=== PATIENT | female | born 1990 ===

== ENCOUNTER 2018-01-12 08:42 | Emergency (ER) | payer OTHER ==
[2018-01-12 08:51] VITALS: TEMP 98.4; O2SAT 100
--- NOTE | 2018-01-12 09:09 | C.PDOC ---
History Of Present Illness 27 year old female, [employer] employee, with no significant past medical history, presents to ED for evaluation of left calf pain, and swelling that developed yesterday while at work. Pt states that her left calf was measured to be 1/2 inch bigger than the right calf. Denies any injury, change in sensation, extremity weakness, numbness, chest pain, shortness of breath, fever, chills, or any other associated symptoms at this time. Time Seen by Provider: 01/12/18 08:44 Chief Complaint (Nursing): Lower Extremity Problem/Injury History Per: Patient History/Exam Limitations: no limitations Onset/Duration Of Symptoms: Days Current Symptoms Are (Timing): Still Present Recent travel outside of the [place]: No Additional History Per: Patient Past Medical History Reviewed: Historical Data, Nursing Documentation, Vital Signs Vital Signs: Last Vital Signs Temp 98.4 F 01/12/18 08:47 Pulse 72 01/12/18 10:20 Resp 16 01/12/18 10:20 BP 116/72 01/12/18 10:20 Pulse Ox 100 01/12/18 10:20 - [facility] APPLICATION OF SPLINT (12/05/03) Family History: States: Unknown Family Hx - Social History Hx Alcohol Use: No Hx Substance Use: No - Immunization History Hx Tetanus Toxoid Vaccination: Yes Hx Influenza Vaccination: Yes Hx Pneumococcal Vaccination: Yes Review Of Systems Except As Marked, All Systems Reviewed And Found Negative. Constitutional: Negative for: Fever, Chills Cardiovascular: Negative for: Chest Pain, Palpitations Respiratory: Negative for: Cough, Shortness of Breath Musculoskeletal: Positive for: Leg Pain (left calf) Neurological: Negative for: Weakness, Numbness, Headache Physical Exam - Physical Exam Appears: Non-toxic, No Acute Distress Skin: Normal Color, Warm, Dry Head: Atraumatic, Normacephalic Eye(s): bilateral: Normal Inspection Oral Mucosa: Moist Extremity: Normal ROM, No Pedal Edema, Calf Tenderness (left ), Capillary Refill (less than 2 seconds), No Deformity, No Other (no popliteal fossa; no redness, or warmth to left posterior calf) Extremity: Bilateral: Atraumatic, Normal Color And Temperature Pulses: Left Dorsalis Pedis: Normal Neurological/Psych: Oriented x3, Normal Speech, Normal Motor, Normal Sensation ED Course And Treatment O2 Sat by Pulse Oximetry: 100 (RA) Pulse Ox Interpretation: Normal Medical Decision Making Medical Decision Making: Plan: Venous duplex scan of LLE preliminary vascular reading is negative for DVT Disposition Counseled Patient/Family Regarding: Studies Performed, Diagnosis, Need For Followup - Disposition Disposition: HOME/ ROUTINE Disposition Time: 10:34 Condition: STABLE Instructions: Muscle and Bone Pain (DC) Forms: [facility] ([place]), General Discharge Instructions - POA Present On Arrival: None - Clinical Impression Clinical Impression: Musculoskeletal pain - Scribe Statement The provider has reviewed the documentation as recorded by the Scribe KP All medical record entries made by the Scribe were at my direction and personally dictated by me. I have reviewed the chart and agree that the record accurately reflects my personal performance of the history, physical exam, medical decision making, and the department course for this patient. I have also personally directed, reviewed, and agree with the discharge instructions and disposition.
[2018-01-12 10:20] VITALS: BP 116/72; PULSE 72; RESP 16
--- NOTE | 2018-01-14 13:04 | VASCLAB ---
Date of service: 01/12/2018 PROCEDURE: Left Lower Extremity Venous Duplex Exam. HISTORY: pain and swelling left calf PRIORS: None. TECHNIQUE: Left common femoral, femoral, popliteal and posterior tibial, peroneal and great saphenous veins were evaluated. Flow was assessed with color Doppler, compressibility, assessment of phasic flow and augmentation response. Report prepared by KORTENY Sherman, RVT FINDINGS: LEFT: 1. Common Femoral Vein: 1.1. Compressibility - Fully compressible: Thrombus - None : Flow - Phasic: Augmentation -Normal: Reflux - None. 2. Femoral Vein: 2.1. Compressibility - Fully compressible: Thrombus - None: Flow - Phasic: Augmentation -Normal: Reflux - None. 3. Popliteal Vein: 3.1. Compressibility - Fully compressible: Thrombus - None: Flow - Phasic: Augmentation -Normal: Reflux - None. 4. Posterior Tibial Vein: 4.1. Compressibility - Fully compressible: Thrombus - None: Flow - Phasic: Augmentation -Normal: Reflux - None. 5. Peroneal Vein: 5.1. Compressibility - Fully compressible: Thrombus - None: Flow - Phasic: Augmentation -Normal: Reflux - None. 6. Great Saphenous Vein: 6.1. Compressibility - Fully compressible: Thrombus - None: Flow - Phasic: Augmentation - Normal: Reflux - None. OTHER FINDINGS: IMPRESSION: No evidence of deep or superficial vein thrombosis of the left lower extremity with excellent venous flow. Normal valve function noted of the left side. Normal venous flow noted in the right common femoral vein.
== END 2018-01-12 10:58 | disposition home or self-care (01) ==
LOC: C.ER 08:42
DX: M79.1 Myalgia (principal)